=== PATIENT | male | born 1990 | race Caucasian/White ===

== ENCOUNTER 2018-10-01 14:30 | Emergency (ER) | payer OTHER ==
[2018-10-01] MEDS: KETOROLAC 30 MG INJ IM (16:55)
== END 2018-10-01 17:10 | disposition home or self-care (01) ==
LOC: FTE 17:10
DX: S09.90XA Unspecified injury of head, initial encounter (principal); S19.9XXA Unspecified injury of neck, initial encounter; V89.2XXA Person injured in unspecified motor-vehicle accident, traffic, initial encounter
CPT/HCPCS: 96372; 99284-25